=== PATIENT | female | born 1995 | race Caucasian/White ===

== ENCOUNTER 2021-12-02 16:43 | Emergency (ER) | payer OTHER ==
[2021-12-02] MEDS ORDERED: Fentanyl 100 MCG/2 ML VIAL ONE ×2 (18:19→21:22)
[2021-12-02] MEDS ORDERED: Lidocaine 1% PF 5 ML VIAL ONE ×3 (20:08→20:11)
[2021-12-02] MEDS ORDERED: CEFAZOLIN 2 GM VIAL ONE (21:31)
[2021-12-02] MEDS ORDERED: Boostrix 0.5 ML (Tdap) VIAL (>/=7 yrs of age) ONE (21:31)
== END 2021-12-02 22:40 | disposition home or self-care (01) ==
LOC: ERS 16:43
DX: O9A.211 Injury, poisoning and certain other consequences of external causes complicating pregnancy, first trimester (principal); S96.021A Laceration of muscle and tendon of long flexor muscle of toe at ankle and foot level, right foot, initial encounter; S91.051A Open bite, right ankle, initial encounter; S70.311A Abrasion, right thigh, initial encounter; W54.0XXA Bitten by dog, initial encounter; Z3A.12 12 weeks gestation of pregnancy
CPT/HCPCS: 12004; 90471; 90715; 96365; 96375; 96376; J0690; J3010